=== PATIENT | male | born 1985 | race Caucasian/White ===

== ENCOUNTER 2018-07-25 12:34 | Emergency (ER) | payer OTHER ==
[~2018-07-25 12:34] MED LIST: LIDOCAINE 1% 10 ML VIAL INJ ONE; PROPOFOL 200 MG/20 ML VIAL IV ONE
[2018-07-25] MEDS ORDERED: MORPHINE SULFATE INJ 10 MG/ML VIAL IV ONE (12:43)
[2018-07-25] MEDS ORDERED: ONDANSETRON INJ 4 MG/2 ML VIAL IV ONE (12:44)
[2018-07-25 13:00] VITALS: TEMP 96.1
--- NOTE | 2018-07-25 13:23 | CT ---
EXAM DESCRIPTION: Head CLINICAL HISTORY: HEAD INJURY COMPARISON: None available TECHNIQUE: Multiple axial images of the head without contrast. Multiplanar reformatted images. This exam was performed according to our departmental dose-optimization program, which includes automated exposure control, adjustment of the mA and/or kV according to patient size and/or use of iterative reconstruction technique. FINDINGS: There is no CT evidence of intracranial hemorrhage, mass effect, or large territory infarction. The brain parenchyma and ventricles are normal. There are no abnormal extra-axial fluid collections. Vascular structures are unremarkable. There is no acute calvarial defect. Large left parietal scalp hematoma and laceration. Mild mucosal thickening in the maxillary sinuses and ethmoid air cells. The mastoid air cells are clear. IMPRESSION: 1. No CT evidence of an acute intracranial abnormality. 2. Large left parietal scalp hematoma and laceration. 3. Inflammatory changes in the paranasal sinuses. Electronically signed by: Davidson Chadwick MD 07/25/2018 1:20 PM [employer]
--- NOTE | 2018-07-25 13:24 | CT ---
EXAM DESCRIPTION: Cervical Spine CLINICAL HISTORY: HEAD INJURY COMPARISON: None available. TECHNIQUE: Axial noncontast CT of the cervical spine with coronal and sagittal reformats. This exam was performed according to our departmental dose-optimization program, which includes automated exposure control, adjustment of the mA and/or kV according to patient size and/or use of iterative reconstruction technique. FINDINGS: Cervical vertebral body heights are maintained. Normal alignment of the cervical spine is seen. No acute fracture or posttraumatic positional abnormality of the cervical spine is seen. No significant disc space narrowing or facet arthropathy. No spinal canal stenosis or foraminal encroachment. The C1-2 relationship is maintained. Visualized skull base is unremarkable. Mild mucosal thickening in the floor the left maxillary sinus and left sphenoid sinus are seen. Lung apices are unremarkable. Soft tissues are unremarkable. Mildly enlarged probably reactive cervical chain lymph nodes are seen. Tonsillar calcifications are noted left greater than right. IMPRESSION: No CT evidence of acute fracture or posttraumatic positional abnormality of the cervical spine. Straightening of the normal cervical lordosis could be secondary to patient positioning or muscle spasm. Electronically signed by: Uday Hogan MD 07/25/2018 1:21 PM PRESIDING JUDGE
[2018-07-25] MEDS ORDERED: PROPOFOL 200 MG/20 ML VIAL IV ONE (13:26)
--- NOTE | 2018-07-25 13:28 | RAD ---
EXAM DESCRIPTION: Ankle,Left 3 Views CLINICAL HISTORY: INJURY COMPARISON: None. TECHNIQUE: 2 views left FINDINGS: Disruption of the ankle mortise is observed. There is lateral subluxation of the talus in relation to the distal tibia. An oblique fracture of the distal fibula is demonstrated. The exam also reveals evidence of a posterior malleolar fracture. The medial malleolus is intact. IMPRESSION: 1. A disruption of the ankle mortise is observed with lateral subluxation of the talus. 2. Fracturing of the distal fibular shaft and posterior tibial malleolus are observed. Electronically signed by: Costa Mast MD 07/25/2018 1:25 PM [facility]
--- NOTE | 2018-07-25 13:31 | RAD ---
EXAM DESCRIPTION: Shoulder,Left 2 or More Views CLINICAL HISTORY: INJURY COMPARISON: None. TECHNIQUE: 2 left views FINDINGS: I see no bone joint or soft tissue abnormality. IMPRESSION: Normal left shoulder. Electronically signed by: Costa Mast MD 07/25/2018 1:27 PM SOCIAL SECURITY ASSESSOR
[2018-07-25] MEDS ORDERED: fentaNYL CITRATE INJ 50 MCG/ML AMP ONE (14:32)
[2018-07-25] MEDS ORDERED: KETAMINE HCL 100 MG/ML VIAL ONE (14:32)
[2018-07-25] MEDS ORDERED: CHLORHEXIDINE GLUCONATE 4 % 15 ML UD TOP ONE (14:55)
--- NOTE | 2018-07-25 15:38 | ED.PDOC ---
History of Present Illness - General Chief Complaint: Lower Extremity Injury Stated Complaint: Pt has telephone pole fall off a truck and hit him Time Seen by Provider: 07/25/18 12:37 Source: patient Exam Limitations: no limitations - History of Present Illness Initial Comments: THIS PATIENT WAS WORKING AND A TELEPHONE POLE FELL ON HIM INJURING HIS HEAD AND LEFT SHOULDER AND THE RIGHT ANKLE. NO LOC BUT SUSTAINS A 12 CM LACERATION TO THE OCCIPUT.. THE PATIENT HAS AN OBVIOUSLY DEFORMED RIGHT ANKLE. DENIES ANY PAIN TO THE NEK BUT C/O PAIN TO THE LEFT SHOULDER. Occurred: just prior to arrival Pain - Lower Extremity: severe: Right Ankle Method of Injury: direct blow Improving Factors: nothing Worsening Factors: nothing, movement Allergies/Adverse Reactions: Allergies Penicillins Allergy (Verified 07/25/18 13:00) Home Medications: Ambulatory Orders Acetamin W/Cod #3 Tab [Tylenol w/CODEINE #3] 1 ea PO Q6HRS #20 tab 07/25/18 Nebivolol HCl [Bystolic] 20 mg PO DAILY 07/25/18 Review of Systems - Review of Systems Constitutional: States: no symptoms reported EENTM: States: no symptoms reported Respiratory: States: no symptoms reported Cardiology: States: no symptoms reported Gastrointestinal/Abdominal: States: no symptoms reported Genitourinary: States: no symptoms reported Musculoskeletal: States: joint swelling, muscle pain Skin: States: no symptoms reported Neurological: States: no symptoms reported Endocrine: States: no symptoms reported Hematologic/Lymphatic: States: no symptoms reported Past Medical History (General) - Patient Medical History Hx Stroke: No Hx Cardiac Disorders: No Hx Hypertension: Yes Hx Diabetes: No Surgical History: no surgical history - Vaccination History Hx Tetanus, Diphtheria Vaccination: - Unknown Hx Influenza Vaccination: No Hx Pneumococcal Vaccination: No Immunizations Up to Date: Yes - Social History Hx Tobacco Use: Yes - Dip Hx Chewing Tobacco Use: Yes Tins Per Week: 7 Hx Alcohol Use: Yes Hx Substance Use: No Hx Depression: No Family Medical History - Family History Mother Family History: Unknown Living Status: Unknown Physical Exam - Physical Exam General Appearance: Alert, Ill Appearing, Well Developed, Well Groomed, Well Hydrated Eyes, Ears, Nose, Throat: PERRL/EOMI, normal ENT inspection, pharynx normal Neck: non-tender, full range of motion Cardiovascular/Respiratory: regular rate, rhythm, no M/R/G, normal peripheral pulses, normal breath sounds Gastrointestinal/Abdominal: non-tender, no organomegaly, no hernia Back: muscle spasm Ankle: deformity, swelling, other - RIGHT ANKLE IS DEFORMED. GOOR PERIPHERAL PULSES NOTED. Neuro/Tendon: normal sensation Mental Status: oriented x 3 Skin: normal color Progress - Progress Progress: 07/25/18 15:[address] MALDONADO-PATIENT TO CALL SATURDAY FOR APPOINTMENT ICE AND ELEVATION - Results/Orders Results/Orders: CT HEAD-N EGATIVE CT CERVICAL SPINE-NEGATIVE LEFT SHOULDER- NEGATIVE ANKLE- WIDENED MOSTISE AND FX DISTAL RIGHT FIBULA AND POSTERIOR MALEOLUS Procedures - Splinting Ankle Hand-Made Type: fiberglass Splint: sugar-tong Pre-Proc Neuro Vasc Exam: normal Post-Proc Neuro Vasc Exam: normal - Joint Reduction ankle Conscious Sedation: Yes - PROPOFOL Reduction Attempts: 1 Post Joint Reduction Film: joint reduced Progress: UNDER CONCIOUS SEDATION THE JOINT WAS REDUCED. I PLACED A POSTERIOR AND SUGAR TONG SPLINT. POST RESUCTION FILMS LOOK SIGNIFICANTLY IMPROVED. - Laceration/Wound Repair Head Wound Length (cm): 12 Wound's Depth, Shape: into muscle, irregular Wound Explored: no foreign body removed Anesthesia: 1% Lidocaine Wound Debrided: minimal Wound Repaired With: sutures Suture Size/Type: 3:0, prolene Number of Sutures: 8 Layer Closure?: No Sterile Dressing Applied?: Yes Departure - Departure Clinical Impression: Bimalleolar ankle fracture Qualifiers: Encounter type: initial encounter Fracture type: closed Laterality: right Qualified Code(s): S82.841A - Displaced bimalleolar fracture of right lower leg, initial encounter for closed fracture Dislocated ankle Qualifiers: Encounter type: initial encounter Laterality: right Qualified Code(s): S93.04XA - Dislocation of right ankle joint, initial encounter Occipital scalp laceration Qualifiers: Encounter type: initial encounter Qualified Code(s): S01.01XA - Laceration without foreign body of scalp, initial encounter Shoulder contusion Qualifiers: Encounter type: initial encounter Laterality: left Qualified Code(s): S40.012A - Contusion of left shoulder, initial encounter Time of Disposition: 15:51 Disposition: Discharge to Home or Self Care Condition: Good Departure Forms: ED Discharge - Pt. Copy, Patient Portal Self Enrollment Instructions: Ankle Fracture (DC), Wound Care (DC) Referrals: SEAN VEGA [Primary Care Provider] - 1-2 Weeks Que Maldonado MD [Physicians] - 1-2 Weeks Prescriptions: Acetamin W/Cod #3 Tab [Tylenol w/CODEINE #3] 1 ea PO Q6HRS #20 tab Home Medications: Ambulatory Orders Acetamin W/Cod #3 Tab [Tylenol w/CODEINE #3] 1 ea PO Q6HRS #20 tab 07/25/18 Nebivolol HCl [Bystolic] 20 mg PO DAILY 07/25/18 Additional Instructions: CALL DR. MALDONADO OFFICE ON SATURDAY FOR APPOINTMENT ICE AND ELEVATION OF THE ANKLE USE CRUTCHES NO WEIGHT BEARING SUTURE REMOVAL 12 DAYS
--- NOTE | 2018-07-25 15:45 | RAD ---
EXAM DESCRIPTION: Ankle,Left 3 Views CLINICAL HISTORY: post reduction COMPARISON: 25 July 2018 TECHNIQUE: 3 views right FINDINGS: Fracturing of the distal fibular shaft and a posterior malleolar fracture again identified. There is slight widening of the ankle mortise. Alignment of the ankle is improved when compared to the previous exams of the same day. IMPRESSION: Improvement in alignment of the ankle is observed compared to the prior exam. There is still widening of the ankle mortise. Electronically signed by: Costa Mast MD 07/25/2018 3:42 PM [facility]
[2018-07-25] MEDS ORDERED: HYDROCOD/APAP 10/325 (ER DISP) # 3 tablets PO ONE (19:42)
[2018-07-25] MEDS ORDERED: HYDROcodone 10MG/APAP 325MG 1 EA TAB PO ONE (19:48)
[2018-07-26 17:41] VITALS: BP 124/71; O2SAT 97
== END 2018-07-25 19:57 | disposition home or self-care (01) ==
LOC: ER 12:34
DX: S82.841A Displaced bimalleolar fracture of right lower leg, initial encounter for closed fracture (principal); S01.01XA Laceration without foreign body of scalp, initial encounter; S40.012A Contusion of left shoulder, initial encounter; I10 Essential (primary) hypertension; W20.8XXA Other cause of strike by thrown, projected or falling object, initial encounter; Y99.0 Civilian activity done for income or pay; Y92.69 Other specified industrial and construction area as the place of occurrence of the external cause; Z87.891 Personal history of nicotine dependence; Z88.0 Allergy status to penicillin
CPT/HCPCS: 70450; 72125; 73030; 73610; 80307; 94770; J2270; J2405; J3010